=== PATIENT | female | born 1955 | race Caucasian/White ===

== ENCOUNTER 2016-06-14 10:44 | Outpatient (CLI) | payer OTHER ==
[2015-11-17 18:32] VITALS: BP 116/67
[2016-06-14 11:22] LABS: eGFR (African) > 60; eGFR (Non-African) > 60
== END 2016-06-14 10:45 ==
LOC: LAB 10:44
PROVIDERS: ATTEND Family Medicine
DX: E78.2 Mixed hyperlipidemia (principal); E11.9 Type 2 diabetes mellitus without complications; E03.9 Hypothyroidism, unspecified
CPT/HCPCS: 80053; 80061; 83036; 84443

== ENCOUNTER 2016-06-19 07:54 | Day surgery (SDC) | payer OTHER ==
[2015-11-17 18:32] VITALS: BP 116/67
[2016-06-19] MEDS ORDERED: SALINE FLUSH 10 ML DISP.SYRIN IVF ONE (08:00)
[2016-06-19] MEDS ORDERED: PROPOFOL 200 MG/20 ML VIAL IV ONE (08:00)
[2016-06-19] MEDS ORDERED: LACTATED RINGERS 1,000 ML IV.SOLN IV ONE (08:00)
--- NOTE | 2016-06-19 10:12 | Operative Note ---
SURGEON: Romero Soto MD ANESTHESIA: MAC anesthesia. ESTIMATED BLOOD LOSS: None. COMPLICATIONS: None. PREOPERATIVE DIAGNOSIS: Screening colonoscopy. POSTOPERATIVE DIAGNOSIS: Normal colonoscopy to the cecum. NAME OF PROCEDURE: Colonoscopy. DESCRIPTION OF PROCEDURE: Patient was brought to the endoscopy suite and placed in the left lateral decubitus position. A rectal examination was performed which was normal. The colonoscope was inserted and passed to the cecum. The appendiceal orifice and ileocecal valve were identified. In the right colon, there was very adherent stool which would not wash off. No large lesions were seen. For remainder of the colon, the prep was adequate. The colonoscope was slowly retracted being careful to inspect all valadez. No polyps or other lesions were noted. FINDINGS: Normal colonoscopy except for poor prep in the right colon. DISPOSITION: I recommended a repeat colonoscopy in 5 years due to the poor prep in the right colon. NATAN
== END 2016-06-19 07:55 ==
LOC: OPSURG 07:54
PROVIDERS: ATTEND Colon & Rectal Surgery
DX: Z12.11 Encounter for screening for malignant neoplasm of colon (principal)
CPT/HCPCS: 45378; J2704; J7120; S1016